=== PATIENT | male | born 1990 | race American Indian/Alaskan Native ===

== ENCOUNTER 2020-08-13 11:30 | Emergency (ER) | payer SELFPAY ==
[2020-08-13 11:47] VITALS: BP 122/69
--- NOTE | 2020-08-13 12:21 | Emergency Department Report ---
Chief Complaint: Urogenital-Male Stated Complaint: STD TESTING Time Seen by Provider: 08/13/20 11:52 - HPI History of Present Illness: 29-year-old -[place] male patient presents with complaints of sudden onset of burning urination, penile discharge, and penile lesions x yesterday. He denies any scrotal swelling/penile swelling, hematuria, painful swollen joints, or/chills/sweats, or abdominal pain. Patient admits to recent unprotected sexual activity. He denies history of genital herpes. - Exam Vital Signs: Vital Signs 08/13/20 11:43 Temperature 98.1 F Pulse Rate 59 L Respiratory 18 Rate Blood Pressure 122/69 [Right] O2 Sat by Pulse 98 Oximetry MSE screening note: Focused history and physical exam performed. Due to findings the following was ordered: ED Medical Decision Making - Medical Decision Making 29-year-old -[place] male patient presents with complaints of sudden onset of burning urination, penile discharge, and penile lesions x yesterday. He denies any scrotal swelling/penile swelling, hematuria, painful swollen joints, or/chills/sweats, or abdominal pain. Patient admits to recent unprotected sexual activity. He denies history of genital herpes. Genital herpes noted on exam without other acute findings. Patient provided with outpatient resources for STI testing. Patient informed to refrain from any sexual activity until he is tested and treated and is given further instructions valacyclovir prescription given. He is well-appearing, his vitals are normal, he is stable for discharge home. Strict return precautions were discussed in great detail with patient who verbalizes understanding peer ED Disposition for MSE Clinical Impression: Penile discharge Disposition: Z- MED SCREENING EXAM-LEFT Is pt being admited?: No Condition: Stable Instructions: Chlamydia, Male, Gonorrhea, Safe Sex, Genital Herpes Prescriptions: Valacyclovir HCl [Valacyclovir] 1,000 mg PO BID 10 Days #20 tablet ED Physical Exam - General Limitations: No Limitations General appearance: alert, in no apparent distress - Head Head exam: Present: atraumatic, normocephalic - Eye Eye exam: Present: normal appearance. Absent: scleral icterus - Cardiovascular Cardiovascular Exam: Present: regular rate, normal rhythm - GI/Abdominal GI/Abdominal exam: Present: soft. Absent: distended, tenderness - exam: Absent: testicular tenderness, urethral discharge, scrotal swelling External exam: Present: lesions (Herpetic lesions noted to the proximal top of the penile shaft without surrounding swelling) - Extremities Exam Extremities exam: Present: full ROM. Absent: joint swelling - Back Exam Back exam: Present: normal inspection - Neurological Exam Neurological exam: Present: alert, oriented X3, normal gait - Psychiatric Psychiatric exam: Present: normal affect, normal mood - Skin Skin exam: Present: warm, dry, intact, normal color ED Review of Systems ROS: Stated complaint: STD TESTING Other details as noted in HPI Constitutional: denies: chills, fever, malaise ENT: denies: throat pain Respiratory: denies: cough, shortness of breath Gastrointestinal: denies: abdominal pain, nausea, vomiting Genitourinary: dysuria, discharge. denies: hematuria, testicular pain, testicular mass Skin: rash Neurological: denies: weakness, numbness, paresthesias
== END 2020-08-13 13:33 | disposition left against medical advice (07) ==
LOC: ED 11:30
DX: Z00.8 Encounter for other general examination (principal); Z53.21 Procedure and treatment not carried out due to patient leaving prior to being seen by health care provider

== ENCOUNTER 2021-03-26 05:25 | Emergency (ER) | payer SELFPAY ==
--- NOTE | 2021-03-26 06:01 | XRay Report ---
XR chest routine 2V INDICATION / CLINICAL INFORMATION: Upper Respiratory Infection COMPARISON: None available. FINDINGS: SUPPORT DEVICES: None. HEART / MEDIASTINUM: No significant abnormality. LUNGS / PLEURA: Lungs are clear. Costophrenic sulci are sharp. No pneumothorax. ADDITIONAL FINDINGS: No significant additional findings. IMPRESSION: 1. No acute findings. Signer Name: Jonah Rausch MD Signed: 03/26/2021 5:56 AM Workstation Name: [id number]
--- NOTE | 2021-03-26 07:54 | Emergency Department Report ---
ED General Adult HPI - General Chief complaint: Upper Respiratory Infection Stated complaint: DRY COUGH Time Seen by Provider: 03/26/21 07:49 Source: patient Mode of arrival: Ambulatory Limitations: No Limitations - History of Present Illness Initial comments: 30-year-old -[place] male patient presents with complaints of cough with yellow mucus production x4 days. He denies any past medical history. He does admit to regularly smoking hookah. No fever/chills/sweats, shortness of breath, nausea/vomiting/diarrhea, loss of taste or smell, or recent known sick contacts per patient. He does admit to some left-sided chest pain that occurs mainly with the cough. No hemoptysis per patient. -: Sudden - Related Data Previous Rx's Medication Instructions Recorded Last Taken Type Ketorolac [Toradol] 10 mg PO Q6H PRN #15 tablet 08/24/18 Unknown Rx methocarbamoL [Robaxin-750] 750 mg PO Q8H PRN #20 tablet 08/24/18 Unknown Rx Valacyclovir HCl [Valacyclovir] 1,000 mg PO BID 10 Days #20 tablet 08/13/20 Unknown Rx Azithromycin [Zithromax Z-FAVIAN] 0 mg PO DAILY #6 tab 03/26/21 Unknown Rx Benzonatate 200 mg PO TID PRN #30 capsule 03/26/21 Unknown Rx Allergies Allergy/AdvReac Type Severity Reaction Status Date / Time No Known Allergies Allergy Unverified 05/11/14 15:51 ED Review of Systems ROS: Stated complaint: DRY COUGH Other details as noted in HPI Constitutional: denies: chills, diaphoresis, fever, malaise, weakness Respiratory: cough. denies: shortness of breath Cardiovascular: as per HPI Gastrointestinal: denies: abdominal pain, nausea, vomiting, diarrhea Musculoskeletal: denies: back pain Neurological: denies: headache ED Past Medical Hx - Past Medical History Previous Medical History?: No - Surgical History Past Surgical History?: No - Social History Smoking Status: Never Smoker Substance Use Type: None - Medications Home Medications: Home Medications Medication Instructions Recorded Confirmed Last Taken Type Ketorolac [Toradol] 10 mg PO Q6H PRN #15 tablet 08/24/18 Unknown Rx methocarbamoL [Robaxin-750] 750 mg PO Q8H PRN #20 tablet 08/24/18 Unknown Rx Valacyclovir HCl [Valacyclovir] 1,000 mg PO BID 10 Days #20 tablet 08/13/20 Unknown Rx Azithromycin [Zithromax Z-FAVIAN] 0 mg PO DAILY #6 tab 03/26/21 Unknown Rx Benzonatate 200 mg PO TID PRN #30 capsule 03/26/21 Unknown Rx ED Physical Exam - General Limitations: No Limitations General appearance: alert, in no apparent distress - Head Head exam: Present: atraumatic, normocephalic - Eye Eye exam: Present: normal appearance - Neck Neck exam: Present: normal inspection - Respiratory Respiratory exam: Present: rhonchi (Left mid/lower lung lobe). Absent: respiratory distress, wheezes, rales, stridor, chest wall tenderness - Cardiovascular Cardiovascular Exam: Present: regular rate, normal rhythm. Absent: systolic murmur, diastolic murmur, rubs, gallop - Extremities Exam Extremities exam: Absent: calf tenderness - Neurological Exam Neurological exam: Present: alert, oriented X3 - Psychiatric Psychiatric exam: Present: normal affect, normal mood - Skin Skin exam: Present: warm, dry, intact, normal color. Absent: rash ED Course Vital Signs 03/26/21 03/26/21 05:31 08:01 Temperature 99.7 F H 99.9 F H Pulse Rate 94 H 88 Respiratory 16 18 Rate Blood Pressure 139/83 Blood Pressure 144/87 [Right] O2 Sat by Pulse 97 99 Oximetry ED Medical Decision Making - Radiology Data Radiology results: report reviewed XR chest routine 2V INDICATION / CLINICAL INFORMATION: Upper Respiratory Infection COMPARISON: None available. FINDINGS: SUPPORT DEVICES: None. HEART / MEDIASTINUM: No significant abnormality. LUNGS / PLEURA: Lungs are clear. Costophrenic sulci are sharp. No pneumothorax. ADDITIONAL FINDINGS: No significant additional findings. IMPRESSION: 1. No acute findings. - Medical Decision Making 30-year-old -[place] male patient presents with complaints of cough with yellow mucus production x4 days. He denies any past medical history. He does admit to regularly smoking hookah. No fever/chills/sweats, shortness of breath, nausea/vomiting/diarrhea, loss of taste or smell, or recent known sick contacts per patient. He does admit to some left-sided chest pain that occurs mainly with the cough. No hemoptysis per patient. Chest x-ray is negative for any acute abnormalities. On exam, patient has rhonchi noted in the left lower and middle lung lobes and states this is the source of his pain. Given history of smoking and low-grade fever, will treat for bronchitis. Cannot rule out COVID-19 and recommend patient gets testing and self quarantine's until his results are back. Covid testing facility list provided to patient. Also recommend vitamin C and zinc daily and plenty of hydration via water. He is well-appearing and stable for discharge home. Strict return precautions were discussed in great detail with patient who verbalizes understanding. Critical care attestation.: If time is entered above; I have spent that time in minutes in the direct care of this critically ill patient, excluding procedure time. ED Disposition Clinical Impression: Cough, Fever, low grade, Person under investigation for COVID-19 Disposition: DC-01 TO HOME OR SELFCARE Is pt being admited?: No Condition: Stable Instructions: Cough, Adult, Acute Bronchitis, Adult, COVID-19, Prevent the Spread of COVID-19 if You Are Sick - [facility] Prescriptions: Benzonatate 200 mg PO TID PRN #30 capsule PRN Reason: Cough Azithromycin [Zithromax Z-FAVIAN] 0 mg PO DAILY #6 tab Referrals: PRIMARY CARE, [Primary Care Provider] - 3-5 Days Forms: Work/School Release Form(ED)
[2021-03-26 08:01] VITALS: BP 144/87
[2021-03-26] MEDS ORDERED: ACETAMINOPHEN 500 MG TAB PO STA (08:09)
== END 2021-03-26 08:59 | disposition home or self-care (01) ==
LOC: ED 05:25
DX: R05 Cough (principal); R50.9 Fever, unspecified; Z20.822 Contact with and (suspected) exposure to COVID-19; Z79.899 Other long term (current) drug therapy
CPT/HCPCS: 71046; 99283